=== PATIENT | male | born 1955 | race Caucasian/White ===

== ENCOUNTER 2017-06-05 09:10 | Day surgery (SDC) | payer BC ==
[2017-06-02 11:27] VITALS: BMI 28.8
[~2017-06-05 09:10] MED LIST: LACTATED RINGERS 1,000 ML IV SCH
[2017-06-05 10:14] VITALS: TEMP 98.3
[2017-06-05] MEDS ORDERED: LIDOCAINE 1% INJ 10MG/ML (20 ML MDV) ONE (10:41)
[2017-06-05] MEDS ORDERED: PROPOFOL 10 MG/ML 20 ML VIAL IV ONE (10:41)
--- NOTE | 2017-06-05 11:09 | P.PCN ---
Date of Procedure: 06/05/17 Procedure(s) Performed: Procedure: Total colonoscopy. Preoperative diagnosis: Screening for neoplasia. Postoperative diagnosis: Mild sigmoid diverticulosis, otherwise, exam reveals no evidence of diverticulitis, polyps or cancer. Preparation: HalfLytely prep. Sedation: Was provided by anesthesia. Brief clinical history: The patient is a 61-year-old male who is scheduled for this evaluation for screening for neoplasia, age being his risk factor as well as history of polyps. No family history of colon cancer. His last colonoscopy was in May 2012. At this time, he has no abdominal complaints, bleeding or anemia. Procedure: With the patient on his left lateral decubitus position and after informed consent and adequate sedation, the perianal area was inspected and it did not show any fissures or fistulas. There were no masses felt on digital rectal examination. The Olympus CFQ 160L video colonoscope was then inserted in the rectum in the usual fashion and advanced to the cecum. The mucosa appeared healthy. There were no obvious polyps or tumors seen. There was mild sigmoid diverticulosis noted with no evidence of acute diverticulitis or strictures. I retroflexed the endoscope in the rectum before the endoscope was withdrawn. The patient tolerated the procedure well. Plan: The patient was reassured. He will follow up with you as planned and I recommended repeat exam in 5 years.
[2017-06-05 11:26] VITALS: BP 113/70; PULSE 72; RESP 16
== END 2017-06-05 11:50 | disposition home or self-care (01) ==
LOC: ORWHC2ENDO 09:10
DX: Z12.11 Encounter for screening for malignant neoplasm of colon (principal); K57.30 Diverticulosis of large intestine without perforation or abscess without bleeding; Z86.010 Personal history of colon polyps; Z85.46 Personal history of malignant neoplasm of prostate; Z79.82 Long term (current) use of aspirin
CPT/HCPCS: J2001; J2704; G0105

== ENCOUNTER 2017-11-20 11:41 | Emergency (ER) | payer BC ==
[2017-11-20 13:10] LABS: Albumin 4.3 g/dL (3.5-5.0); Calcium 9.2 mg/dL (8.4-10.2); Potassium 4.3 mmol/L (3.5-5.1); Total Bilirubin 0.8 mg/dL (0.2-1.3); Total Protein 6.9 g/dL (6.3-8.2)
[2017-11-20 13:17] LABS: Basophils % (A) 0 %; Eosinophils % (A) 0 %; HCT 44.4 % (39.0-53.0); HGB 14.6 gm/dL (13.0-17.5); Lymphocytes # (A) 0.6 k/uL (1.0-4.8); Lymphocytes % (A) 7 %; MCH 30.7 pg (25.0-35.0); MCHC 32.9 g/dL (31.0-37.0); MCV 93.1 fL (80.0-100.0); Mean Platelet Volume 7.3; Monocytes # (A) 0.4 k/uL (0-1.0); Monocytes % (A) 4 %; Neutrophils % (A) 88 %; Platelet Count 153 k/uL (150-450); RBC 4.77 m/uL (4.30-5.90); RDW 13.3 % (11.5-15.5); WBC 9.1 k/uL (3.8-10.6)
[2017-11-20 13:23] LABS: Appearance,Urine Cloudy (Clear); Bilirubin,Urine Negative (Negative); Blood,Urine Large (Negative); Color,Urine Yellow; Glucose,Urine (UA) Negative (Negative); Ketones,Urine 1+ (Negative); Leukocyte Esterase,Urine Negative (Negative); Mucus,Urine Few /hpf; Nitrite,Urine Negative (Negative); Protein,Urine Trace (Negative); RBC,Urine >182 /hpf (0-5); Specific Gravity,Urine 1.015 (1.001-1.035); Urobilinogen,Urine <2.0 mg/dL (<2.0); WBC,Urine 4 /hpf (0-5)
--- NOTE | 2017-11-20 13:59 | ED ---
General Adult HPI - General Chief complaint: Abdominal Pain Stated complaint: Abd Pain Time Seen by Provider: 11/20/17 13:50 Source: patient, RN notes reviewed Mode of arrival: wheelchair Limitations: no limitations - History of Present Illness Initial comments: Patient is a 62-year-old male sent to the emergency room today with a chief complaint of hematuria and right-sided flank pain. Patient states that he did see some what he believes to be blood in his urine earlier today. Patient states he was at work when he began having increased sharp pain located on the right flank radiating around to the right side of the front of the abdomen. Patient states pain has subsided at this time is feeling much better. He does admit that he was nauseated earlier today became very sweaty when he had all his pain. States started approximately 3 hours ago. Patient denies any symptoms at this time. Patient denies any recent fever, chills, shortness of breath, chest pain, numbness or tingling, dysuria, constipation or diarrhea, headaches or visual changes, or any other complaints. - Related Data Previous Rx's Medication Instructions Recorded Ibuprofen [Motrin] 800 mg PO Q6HR #30 tab 11/20/17 Ondansetron Odt [Zofran ODT] 4 mg PO Q8HR PRN #20 tab 11/20/17 Allergies Allergy/AdvReac Type Severity Reaction Status Date / Time No Known Allergies Allergy Verified 11/20/17 14:00 Review of Systems ROS Statement: Those systems with pertinent positive or pertinent negative responses have been documented in the HPI. ROS Other: All systems not noted in ROS Statement are negative. Past Medical History Past Medical History: Cancer, Prostate Disorder Additional Past Medical History / Comment(s): prostate-no chemo/rad History of Any Multi-Drug Resistant Organisms: None Reported Past Surgical History: Orthopedic Surgery, Prostate Surgery Additional Past Surgical History / Comment(s): colonoscopy,shoulder repair, prostatectomy,repair tibia fx-no hardware. Past Anesthesia/Blood Transfusion Reactions: No Reported Reaction Past Psychological History: No Psychological Hx Reported Smoking Status: Never smoker Past Alcohol Use History: None Reported Past Drug Use History: None Reported - Past Family History Father Family Medical History: Cancer General Exam - General Exam Comments Initial Comments: General: The patient is awake and alert, in no distress, and does not appear acutely ill. Eye: Pupils are equal, round and reactive to light, extra-ocular movements are intact. No nystagmus. There is normal conjunctiva bilaterally. No signs of icterus. Ears, nose, mouth and throat: There are moist mucous membranes and no oral lesions. Neck: The neck is supple, there is no tenderness or JVD. Cardiovascular: There is a regular rate and rhythm. No murmur, rub or gallop is appreciated. Respiratory: Lungs are clear to auscultation, respirations are non-labored, breath sounds are equal. No wheezes, stridor, rales, or rhonchi. Gastrointestinal: Soft, non-distended, non-tender abdomen without masses or organomegaly noted. There is no rebound or guarding present. No CVA tenderness. Musculoskeletal: Normal ROM, no tenderness. Sensation intact. Neurological: A&O x 3. CN II-XII intact, There are no obvious motor or sensory deficits. Coordination appears grossly intact. Speech is normal. Skin: Skin is warm and dry and no rashes or lesions are noted. Psychiatric: Cooperative, appropriate mood & affect, normal judgment. Limitations: no limitations Course Vital Signs 11/20/17 11/20/17 12:33 15:12 Temperature 97.8 F Pulse Rate 50 L 54 L Respiratory 20 18 Rate Blood Pressure 154/88 156/75 O2 Sat by Pulse 99 100 Oximetry Medical Decision Making - Medical Decision Making Patient's CT of the abdomen and pelvis reviewed and shows a poorly characterized solid mass upper pole of the right kidney felt to reflect renal cell carcinoma until proven otherwise. Blood products are seen within the right renal collecting system. No evidence of a metastatic disease at this time as read by radiologist Dr. Peterson. Patient's blood work was reviewed. His urinalysis shows large blood. Patient currently comfortable at this time. Case was discussed with attending physician Dr. Hawkins. Patient will be discharged to follow-up with urologist over the next 2 days. Patient advised return if symptoms increase or worsen or for concerns. - Lab Data Result diagrams: 11/20/17 12:46 11/20/17 12:46 Lab Results 11/20/17 11/20/17 11/20/17 Range/Units 12:46 12:46 12:46 WBC 9.1 (3.8-10.6) k/uL RBC 4.77 (4.30-5.90) m/uL Hgb 14.6 (13.0-17.5) gm/dL Hct 44.4 (39.0-53.0) % MCV 93.1 (80.0-100.0) fL MCH 30.7 (25.0-35.0) pg MCHC 32.9 (31.0-37.0) g/dL RDW 13.3 (11.5-15.5) % Plt Count 153 (150-450) k/uL Neutrophils % 88 % Lymphocytes % 7 % Monocytes % 4 % Eosinophils % 0 % Basophils % 0 % Neutrophils # 8.0 H (1.3-7.7) k/uL Lymphocytes # 0.6 L (1.0-4.8) k/uL Monocytes # 0.4 (0-1.0) k/uL Eosinophils # 0.0 (0-0.7) k/uL Basophils # 0.0 (0-0.2) k/uL Sodium 139 (137-145) mmol/L Potassium 4.3 (3.5-5.1) mmol/L Chloride 106 (98-107) mmol/L Carbon Dioxide 23 (22-30) mmol/L Anion Gap 10 mmol/L BUN 22 H (9-20) mg/dL Creatinine 1.26 H (0.66-1.25) mg/dL Est GFR (CKD-EPI)AfAm 71 (>60 ml/min/1.73 sqM) Est GFR (CKD-EPI)NonAf 62 (>60 ml/min/1.73 sqM) Glucose 129 H (74-99) mg/dL Calcium 9.2 (8.4-10.2) mg/dL Total Bilirubin 0.8 (0.2-1.3) mg/dL AST 33 (17-59) U/L ALT 33 (21-72) U/L Alkaline Phosphatase 87 (38-126) U/L Total Protein 6.9 (6.3-8.2) g/dL Albumin 4.3 (3.5-5.0) g/dL Amylase 63 (30-110) U/L Lipase 113 (23-300) U/L Urine Color Yellow Urine Appearance Cloudy (Clear) Urine pH 5.0 (5.0-8.0) Ur Specific [place] 1.015 (1.001-1.035) Urine Protein Trace H (Negative) Urine Glucose (UA) Negative (Negative) Urine Ketones 1+ H (Negative) Urine Blood Large H (Negative) Urine Nitrite Negative (Negative) Urine Bilirubin Negative (Negative) Urine Urobilinogen <2.0 (<2.0) mg/dL Ur Leukocyte Esterase Negative (Negative) Urine RBC >182 H (0-5) /hpf Urine WBC 4 (0-5) /hpf Urine Mucus Few H (None) /hpf Disposition Clinical Impression: Right kidney mass, Flank pain Disposition: HOME SELF-CARE Condition: Good Instructions: Abdominal Pain (ED) Additional Instructions: Please follow-up with the family doctor or urologist over the next 2 days. Please return here to emergency room if any symptoms increase or worsen or for any other concerns. Prescriptions: Ibuprofen [Motrin] 800 mg PO Q6HR #30 tab Ondansetron Odt [Zofran ODT] 4 mg PO Q8HR PRN #20 tab PRN Reason: Nausea Is patient prescribed a controlled substance at d/c from ED?: No Referrals: Ric Queen MD [Primary Care Provider] - 1-2 days Time of Disposition: 15:43
--- NOTE | 2017-11-20 14:53 | CT ---
EXAMINATION TYPE: CT abdomen pelvis wo con DATE OF EXAM: 11/20/2017 COMPARISON: None HISTORY: Right flank pain and gross hematuria. CT DLP: 1121 mGycm Examination of the solid and hollow viscera is limited given the lack of contrast. FINDINGS: LUNG BASES: No evidence for nodule. No evidence for infiltrate. Linear basilar parenchymal scarring LIVER/GB: The gallbladder is unremarkable. No space-occupying hepatic lesion. PANCREAS: No pancreatic mass identified. No inflammatory process seen. SPLEEN: No evidence for splenomegaly. No intrasplenic lesions seen. ADRENALS: No adrenal nodules identified. No evidence for thickening. KIDNEYS: Mass which appears to be solid upper pole right kidney measuring 6.5 x 5.8 cm with internal calcifications felt to reflect renal cell carcinoma until proven otherwise. Hemorrhagic byproducts ar e seen within the right renal pelvis and lower pole calyceal system. Given the lack of contrast mass is poorly characterized at this time. Additional hypodense lesion midpole right kidney measures 1 cm. No definite nephrolithiasis. No evidence for left sided renal mass or hydronephrosis. Renal parenchy mal thinning may be related to prior insult. BOWEL: Lymph nodes: No evidence for adenopathy greater than 1 cm. Abdominal aorta: Atheromatous changes seen. No evidence for aneurysm. Genital organs: No significant abnormality. Other: No significant abnormality. IMPRESSION: 1. Poorly characterized solid mass upper pole right kidney felt to reflect renal cell carcinoma unti l proven otherwise. Blood byproducts are seen within the right renal collecting system. No evidence f or metastatic disease at this time on this noncontrast examination.
[2017-11-20] MEDS ORDERED: KETOROLAC 60 MG/2 ML VIAL IM STA (15:00)
[2017-11-20 15:13] VITALS: RESP 18
[2017-11-20 16:08] VITALS: BP 126/60; PULSE 62; TEMP 98.6
== END 2017-11-20 16:07 | disposition home or self-care (01) ==
LOC: EC 11:41
DX: N28.89 Other specified disorders of kidney and ureter (principal); R10.9 Unspecified abdominal pain; R11.0 Nausea; R31.9 Hematuria, unspecified; Z85.46 Personal history of malignant neoplasm of prostate; Z90.89 Acquired absence of other organs; Z98.890 Other specified postprocedural states
CPT/HCPCS: 36415; 80053; 82150; 83690; 85025; 81001; 74176; 99284; 96372; J1885

== ENCOUNTER → 2017-11-28 | Outpatient (CLI) | payer BC ==
--- NOTE | 2017-11-28 14:41 | CT ---
EXAMINATION TYPE: CT abdomen w con DATE OF EXAM: 11/28/2017 COMPARISON: Prior CT abdomen and pelvis from 8 days ago. HISTORY: Abnormal CT, right renal mass CT DLP: 911.3 mGycm, Automated Exposure Control for Dose Reduction was Utilized. CONTRAST: CT scan of the abdomen is performed with oral and with IV Contrast, patient injected with 100 mL of I sovue 300. FINDINGS: LUNG BASES: Some patchy bibasilar linear scarring and/or atelectasis anteriorly in the central aspect of both lung bases is redemonstrated. LIVER/GB: No significant abnormality is appreciated. PANCREAS: No significant abnormality is seen. SPLEEN: No significant abnormality is seen. ADRENALS: No significant abnormality is seen. KIDNEYS: There is redemonstration of focal cortical scarring laterally upper to mid pole level left k idney axial image 28. A 2 mm calculus on prior study is less well-seen on current study with contrast enhancement. There is symmetric cortical medullary uptake and excretion from both kidneys without ev idence of hydronephrosis bilaterally. Right kidney shows a few subcentimeter simple appearing cysts lower pole level axial image 44 as well as a 1.3 cm simple appearing cyst mid to lower pole level axial image 36 series 9. Corresponding to recent CT there is however all shaped partially exophytic heterogeneous enhancing mass or solid neopl asm from the upper pole right kidney measuring 6.0 cm transversely by 6.3 cm AP diameter axial image 26 x 6.7 cm craniocaudal diameter coronal image 62 strongly suspicious for renal cell carcinoma. Bryan ncy of the draining right renal vein is noted. BOWEL: Minimal oral contrast is evident. No suspicious small or large bowel dilatation is seen. A few scattered diverticula in the left colon are present. There is mild wall thickening in the distal tra nsverse colon axial image 21 on current study that showed no suspicious abnormality on prior CT favor ing focal spasm. LYMPH NODES: No greater than 1cm abdominal lymph nodes are appreciated. OSSEOUS STRUCTURES: Moderate to severe disc space narrowing lumbosacral junction is present. There is some multilevel spurring in the visualized thoracic spine. OTHER: No significant additional abnormality is seen. IMPRESSION: Confirmation of enhancing partially exophytic solid upper pole right renal mass felt to r eflect renal cell carcinoma.
== END | disposition home or self-care (01) ==
LOC: RADCTMAIN 12:32
PROVIDERS: ATTEND Urology
DX: N28.89 Other specified disorders of kidney and ureter (principal)
CPT/HCPCS: 74160; Q9967

== ENCOUNTER → 2018-04-16 | Outpatient (CLI) | payer BC ==
--- NOTE | 2018-04-17 14:21 | CT ---
EXAMINATION TYPE: CT ChestAbdPelvis wo con DATE OF EXAM: 04/16/2018 COMPARISON: 11/28/2017 and 11/20/2017 HISTORY: Follow up for renal CA CT DLP: 944.2 mGycm. Automated Exposure Control for Dose Reduction was Utilized. TECHNIQUE: CT scan of the thorax, abdomen and pelvis is performed without IV contrast. FINDINGS: LUNGS: There is a right basilar 5 mm pulmonary nodule seen on series 4 image 42. This is adjacent to an area of atelectasis and pseudonodule is possible. This is only partially imaged on the exam of 11/08 given [id number] in the prior CT abdomen and pelvis. Bandlike pleural parenchymal scarring is noted just inferior to this nodule. Minimal left basilar pleural parenchymal scarring is also seen . No suspicious left sided pulmonary nodule or mass. MEDIASTINUM: There are no greater than 1 cm hilar or mediastinal lymph nodes. No pericardial effusi on is seen. Minimal coronary calcifications are seen. Punctate calcification in the aorticopulmonary window is likely within a lymph node and benign. LIVER/GB: No significant abnormality is appreciated. No cholelithiasis. No intrahepatic biliary ducta l dilatation. PANCREAS: No significant abnormality is seen. SPLEEN: No significant abnormality is seen. ADRENALS: Right adrenal gland appears surgically absent. Left adrenal gland is unremarkable. KIDNEYS: Right kidney is surgically absent. There is prolapse of large bowel into the right nephrecto my bed. No right nephrectomy bed soft tissue nodule or adenopathy is seen. There is scarring of the left renal mid pole with cortical retraction. Punctate calcifications are se en at the capsular margin at this location. Correlate for prior injury. BOWEL: Descending duodenal diverticulum is incidentally seen. Oral contrast extends only to the ascen ding colon, limiting evaluation of the bowel. Scattered colonic diverticula are seen without pericolo melina fat stranding. No dilation of the large or small bowel. LYMPH NODES: No greater than 1cm abdominal or pelvic lymph nodes are appreciated. Shotty retroperiton eal less than 1 cm periaortic lymph nodes are seen. No suspicious adenopathy is identified. OSSEOUS STRUCTURES: There are multiple punctate sclerotic foci within the thoracic vertebral bodies, however these are contiguous with degenerative endplate changes. Anterior osteophytes are seen of th e thoracic spine. Degenerative disc disease is also seen at L5-S1. Sclerotic foci of the thoracic spi ne are of low suspicion for metastasis and favored to represent sequela of degenerative change. Indet erminate left iliac lesion is seen on image 101 with a central area of lucency measuring 1.1 cm. This is also low suspicion. Mild degenerative changes of the sacroiliac joints and moderate bilateral fem oral acetabular arthropathy are also noted. IMPRESSION: 1. Status post right nephrectomy with no residual soft tissue density seen in the right nephrectomy b ed nor retroperitoneal adenopathy. 2. Stable cortical scarring of the left renal midpole with punctate capsular or subcapsular calcifica tions. Correlate for prior injury or prior cryoablation. 3. Multiple punctate sclerotic foci of the thoracic vertebral bodies are favored to represent sequela of degenerative endplate change rather than osseous metastasis. These are of low suspicion. 3. 5 mm right basilar pulmonary nodule elongates and may represent a pseudonodule with surrounding at electasis and scarring. Short-term follow-up is recommended in 6 months to exclude true pulmonary nod ule 3 no additional pulmonary nodules or masses are seen. No intrathoracic adenopathy.
== END | disposition home or self-care (01) ==
LOC: RADCTMAIN 13:50
PROVIDERS: ATTEND Internal Medicine Hematology & Oncology
DX: Z08 Encounter for follow-up examination after completed treatment for malignant neoplasm (principal); R91.8 Other nonspecific abnormal finding of lung field; R93.7 Abnormal findings on diagnostic imaging of other parts of musculoskeletal system; Z90.5 Acquired absence of kidney; Z85.528 Personal history of other malignant neoplasm of kidney
CPT/HCPCS: 36415; 71250; 74176; 82565; 84520

== ENCOUNTER → 2018-05-21 | Outpatient (CLI) | payer BC ==
[2018-05-21 12:14] LABS: Appearance,Urine Clear (Clear); Bilirubin,Urine Negative (Negative); Blood,Urine Small (Negative); Color,Urine Yellow; Glucose,Urine (UA) Negative (Negative); Hyaline Casts,Urine 1 /lpf (0-2); Ketones,Urine Negative (Negative); Leukocyte Esterase,Urine Negative (Negative); Mucus,Urine Rare /hpf; Nitrite,Urine Negative (Negative); Protein,Urine Negative (Negative); RBC,Urine 1 /hpf (0-5); Specific Gravity,Urine 1.018 (1.001-1.035); Urobilinogen,Urine <2.0 mg/dL (<2.0); WBC,Urine 1 /hpf (0-5)
[2018-05-21 12:20] LABS: HCT 42.6 % (39.0-53.0); HGB 14.1 gm/dL (13.0-17.5); MCH 31.5 pg (25.0-35.0); MCHC 33.1 g/dL (31.0-37.0); MCV 95.1 fL (80.0-100.0); Mean Platelet Volume 7.8; Platelet Count 163 k/uL (150-450); RBC 4.48 m/uL (4.30-5.90); RDW 13.7 % (11.5-15.5); WBC 5.2 k/uL (3.8-10.6)
[2018-05-21 22:06] LABS: Albumin 4.2 g/dL (3.80-4.90); Albumin/Globulin Ratio 1.83 (1.60-3.17); Calcium 9.6 mg/dL (8.7-10.3); Globulin 2.3 g/dL (1.6-3.3); Phosphorus 3.5 mg/dL (2.4-5.1); Total Bilirubin 0.9 mg/dL (0.3-1.2); Total Protein 6.5 g/dL (6.2-8.2)
== END | disposition home or self-care (01) ==
LOC: LABWHC1 11:19
PROVIDERS: ATTEND Internal Medicine
DX: N39.0 Urinary tract infection, site not specified (principal); D64.9 Anemia, unspecified; E83.39 Other disorders of phosphorus metabolism
CPT/HCPCS: 36415; 80053; 81001; 84100; 85027

== ENCOUNTER → 2018-06-04 | Outpatient (CLI) | payer BC ==
--- NOTE | 2018-06-04 16:22 | US ---
EXAMINATION TYPE: US kidneys/renal and bladder DATE OF EXAM: 06/04/2018 COMPARISON: CT April 16, 2018. CLINICAL HISTORY: N18.9 kidney diease. Right kidney removed JAN 2018 due to renal CA, F/U EXAM MEASUREMENTS: Left Kidney: 11.8 x 6.2 x 5.4 cm Right Kidney: Surgically absent Left Kidney: Appeared wnl Bladder: wnl Bilateral Jets seen: Only left jet visualized Right kidney is surgically absent. Bladder is poorly distended and thus suboptimally evaluated. Dista l left ureter jet is visualized. Left kidney is normal in size. Cortical medullary differentiation is maintained. No hydronephrosis is seen. No concerning solid or cystic renal masses are present on flavio ges saved. Focal cortical scarring posterior lateral upper to mid pole level left kidney seen better on CT versus ultrasound. IMPRESSION: No hydronephrosis in the remnant left kidney.
== END | disposition home or self-care (01) ==
LOC: RADUSWWP 15:45
PROVIDERS: ATTEND Internal Medicine
DX: N18.9 Chronic kidney disease, unspecified (principal)
CPT/HCPCS: 76770

== ENCOUNTER → 2018-07-16 | Outpatient (CLI) | payer BC ==
--- NOTE | 2018-07-16 15:29 | US ---
EXAMINATION TYPE: US venous doppler duplex LE LT DATE OF EXAM: 07/16/2018 3:10 PM COMPARISON: NONE CLINICAL HISTORY: I82.409 Acute embolism and thrombosis. Pain left lower leg SIDE PERFORMED: left TECHNIQUE: The lower extremity deep venous system is examined utilizing real time linear array sonog elizabeth with graded compression, doppler sonography and color-flow sonography. VESSELS IMAGED: External Iliac Vein (EIV) Common Femoral Vein Deep Femoral Vein Greater Saphenous Vein * Femoral Vein Popliteal Vein Small Saphenous Vein * Proximal Calf Veins (* superficial vessels) There is normal flow, compressibility, vascular waveforms within the deep veins of the left lower ex tremity. At the site of the upper leg there is lack of compressibility with some wall thickening wit hin the serpiginous structure suggestive of superficial venous thrombosis. Left Leg: No evidence of DVT. Superficial thrombus noted left upper calf within area of pain IMPRESSION: No evident deep venous thrombosis at or above the left knee. Findings suggest superficial venous thrombosis within a varix.
== END | disposition home or self-care (01) ==
LOC: RADUSWWP 14:43
PROVIDERS: ATTEND Internal Medicine
DX: M79.662 Pain in left lower leg (principal)

== ENCOUNTER → 2018-10-15 | Outpatient (CLI) | payer BC ==
--- NOTE | 2018-10-15 19:41 | CT ---
EXAMINATION TYPE: CT ChestAbdPelvis wo con DATE OF EXAM: 10/15/2018 INDICATION: Renal cell cancer. COMPARISON: 04/16/2018 CT DLP: 1062.5 mGycm CONTRAST: None TECHNIQUE: Axial images at 5 mm thick sections. Reconstructed images in the coronal plane. Delayed images through the kidneys. FINDINGS: CT CHEST: Portion of the thyroid visualized is normal. No suspicious lung nodules or focal infiltrates are present. Small density in the posterior lateral r ight lung base appears smaller and less distinct than on the comparison study. No enlarged mediastinal or hilar adenopathy is evident. The ascending aorta diameter at the level of the main pulmonary artery is 3.5 cm. The main pulmonary artery diameter at the bifurcation is 3.0 cm. Minimal coronary artery calcification is present. CT ABDOMEN: Liver: Normal Spleen: Normal Pancreas: Normal Adrenal glands: The adrenal glands are normal. Gallbladder: Normal Kidneys: No masses are evident. No hydronephrosis is present. No cysts are present. Small calcific ations in the cortex of the mid left kidney. There is deformity of the left kidney which can be relat ed to prior scarring. The right kidney is absent. No suspicious masses within the right renal bed. Aorta: Vascular calcification is within the aorta. Inferior vena cava: Normal. CT PELVIS: There is an anterior abdominal wall hernia in the periumbilical region with an opening of 3.7 cm containing mesenteric fat. No loops of bowel are involved. Loops of bowel within the abdomen and pelvis are normal. There are loops of bowel which are incom pletely distended or lack oral contrast limiting their evaluation. Appendix: Normal as visualized. Urinary bladder: Normal. Genitourinary structures: Prostate appears normal. Osseous structures: No suspicious lytic or sclerotic lesions. IMPRESSIONS: 1. Stable appearance of the left kidney. 2. No suspicious metastatic changes.
== END | disposition home or self-care (01) ==
LOC: RADCTMAIN 12:08
PROVIDERS: ATTEND Internal Medicine Hematology & Oncology
DX: C64.1 Malignant neoplasm of right kidney, except renal pelvis (principal); Z03.89 Encounter for observation for other suspected diseases and conditions ruled out
CPT/HCPCS: 71250; 74176

== ENCOUNTER → 2019-04-24 | Outpatient (CLI) | payer BC ==
--- NOTE | 2019-04-24 14:02 | CT ---
EXAMINATION TYPE: CT ChestAbdPelvis wo con DATE OF EXAM: 04/24/2019 COMPARISON: CT October 15, 2018 and older CTs HISTORY: Follow up renal cancer CT DLP: 1276 mGycm. Automated Exposure Control for Dose Reduction was Utilized. TECHNIQUE: CT scan of the thorax, abdomen and pelvis is performed without oral or IV contrast. FINDINGS: LUNGS: Mild underlying emphysematous change. Focus of linear scarring right lower lobe posteriorly a xial image 46 redemonstrated. Additional mild linear scarring in both bases just above diaphragm rede monstrated. No suspicious new greater than 4 mm nodules or masses. No pleural effusion or pneumothora x seen bilaterally. No new focal infiltrate or consolidation. MEDIASTINUM: There are no greater than 1 cm hilar or mediastinal lymph nodes. No cardiomegaly or pe ricardial effusion is seen. Mild coronary artery calcification is present which is noted marker for underlying coronary artery disease. LIVER/GB: No significant abnormality is appreciated. PANCREAS: No significant abnormality is seen. SPLEEN: No significant abnormality is seen. ADRENALS: No significant abnormality is seen. KIDNEYS: Focal cortical defect or scar left kidney posteriorly midpole level axial image 77 redemonst rated. A few small simple appearing thin-walled cyst centrally left kidney remain present. Right kidn ey surgically absent. BOWEL: Normal-appearing appendix incidentally seen from cecum right midabdomen. GENITAL ORGANS: Prostate not well seen and may be small in size or surgically absent. LYMPH NODES: No greater than 1cm abdominal or pelvic lymph nodes are appreciated. OSSEOUS STRUCTURES: Moderate narrowing and spurring in both hip joints. Moderate to severe narrowing lumbosacral junction. OTHER: There is redemonstration of [place] pouch wall hernia containing fat and mesenteric vessels axial image 84 unchanged from most recent CT. Underlying scoliosis thoracic spine redemonstrated. A f ew tiny sclerotic foci throughout the pelvis favor benign bone islands for reference left humeral hea d lesion image 51. No new suspicious osseous lesions present. Some Schmorl nodes with sclerosis in th e thoracic spine are redemonstrated. IMPRESSION: No new mass or adenopathy to suggest neoplastic recurrence.
== END | disposition home or self-care (01) ==
LOC: RADCTMAIN 11:15
PROVIDERS: ATTEND Internal Medicine Hematology & Oncology
DX: C64.1 Malignant neoplasm of right kidney, except renal pelvis (principal)
CPT/HCPCS: 71250; 74176

== ENCOUNTER → 2019-10-23 | Outpatient (CLI) | payer BC ==
--- NOTE | 2019-10-24 05:14 | CT ---
EXAMINATION TYPE: CT ChestAbdPelvis wo con DATE OF EXAM: 10/23/2019 COMPARISON: 04/24/2019, 10/15/2018, 04/16/2018, 11/20/2017 HISTORY: 64-year-old male C64.1, Renal cell cancer. TECHNIQUE: Contiguous axial scanning of the chest, abdomen, and pelvis without IV contrast. Coronal a nd sagittal reconstructions performed. CT DLP: 1132 mGycm Automated exposure control for dose reduction was used. FINDINGS: CHEST: Heart normal size without pericardial effusion. Borderline ectasia aortic root at 3.6 cm. Conventional arch vessel branching anatomy. Trace bilateral gynecomastia. No thoracic lymphadenopathy by CT size criteria. Strands of atelectasis or scarring at the lower lungs. No suspicious pulmonary nodule or mass. No con solidation or pleural effusion. ABDOMEN: Lack of IV contrast limits assessment of the solid abdominal viscera, lymph nodes, and vascular struc tures. Noncontrast appearance of the liver, collapsed gallbladder, adrenal glands, spleen appear within norm al limits. Stable nodular configuration to the tip of the pancreatic tail back to at least 04/16/2018 suggesting a prominent lobule of normal pancreatic tissue. 2.4 cm diverticulum of the second portion of the duodenum projecting into the pancreatic head region. Patient is status post right nephrectomy. No abnormal nodularity seen within the nephrectomy bed. Stable cortical defect along the lateral upper midpole of the left kidney likely site of prior treatm ent or surgery. Some punctate calcifications along the margin of the defect remains unchanged. No new contour deforming lesion of the left kidney. Assessment of the parenchyma itself is limited due to l ack of IV contrast. Redemonstrated moderate-sized ventral midline supraumbilical hernia measuring 7.0 cm wide. No dilated small bowel, free fluid, or free air. No mesenteric or retroperitoneal lymphadenopathy. Normal appendix. Mild stool burden. Mild diverticular change along the proximal sigmoid. No pericolon ic inflammatory change. PELVIS: Bladder is nondistended. Focal 2.0 cm nodular thickening along the lower anterior left peritoneal lee ing, axial image 121 remains unchanged back to 04/16/2018 and even back to 11/20/2017 suggesting some ty pe of chronic benign etiology. Prostate gland is small. No abnormal fluid collection in the pelvis ar e otherwise any pelvic lymphadenopathy seen. BONES: Osteitis pubis. Degenerative changes at the hips. Degenerative bridging ankylosis at the right SI dara nt. Stable scattered small bone islands within the pelvis. Facet arthropathy lower lumbar spine. Dege nerative disc disease L5-S1. Moderate within the mid thoracic spine. No osseous destructive process s een. DISH within the lower thoracic spine. IMPRESSION: 1. STATUS POST RIGHT NEPHRECTOMY. ALSO, STABLE LARGE CORTICAL DEFECT ALONG THE LATERAL ASPECT OF THE LEFT KIDNEY, POSSIBLY POSTSURGICAL CHANGE. 2. STABLE 2 CM NODULE ALONG THE LOWER ANTERIOR LEFT PERITONEUM MOST SUGGESTIVE OF A BENIGN ETIOLOGY G IVEN STABILITY BACK TO 11/20/2017. 3. NO NEW OR SUSPICIOUS LESIONS IDENTIFIED TO SUGGEST METASTATIC DISEASE ON THIS NONCONTRAST STUDY. 4. MODERATE-SIZED FAT-CONTAINING VENTRAL ABDOMINAL WALL HERNIA REDEMONSTRATED. PROXIMAL SIGMOID DIVER TICULOSIS.
== END | disposition home or self-care (01) ==
LOC: RADCTMAIN 18:17
PROVIDERS: ATTEND Internal Medicine Hematology & Oncology
DX: K66.8 Other specified disorders of peritoneum (principal); N28.89 Other specified disorders of kidney and ureter; K43.9 Ventral hernia without obstruction or gangrene; K57.30 Diverticulosis of large intestine without perforation or abscess without bleeding; Z90.5 Acquired absence of kidney; C64.1 Malignant neoplasm of right kidney, except renal pelvis
CPT/HCPCS: 71250; 74176

== ENCOUNTER → 2020-04-28 | Outpatient (CLI) | payer BC ==
--- NOTE | 2020-04-28 14:56 | CT ---
EXAMINATION TYPE: CT ChestAbdPelvis wo con DATE OF EXAM: 04/28/2020 INDICATION: Follow up renal cancer COMPARISON: 10/23/2019 CT DLP: 1241 mGycm CONTRAST: Performed without Oral Contrast. No intravenous contrast. TECHNIQUE: Axial images at 5 mm thick sections. Reconstructed images in the coronal plane. Delayed images through the kidneys. FINDINGS: CT CHEST: Portion of the thyroid visualized is normal. There is a 0.5 cm rounded density in the right anterior upper lobe, series 4 image 21. This could be volume averaging with adjacent rib. New nodule however should be considered, this area is not clearly identified on previous exam. Some groundglass opacities in the posterior lateral right lung present previously. No enlarged mediastinal or hilar adenopathy is evident. The ascending aorta diameter at the level of the main pulmonary artery is 3. cm. The main pulmonary artery diameter at the bifurcation is 2.[address] ABDOMEN: There is an anterior abdominal wall hernia containing mesenteric fat in the superior umbi lical region with an opening measured at 5.4 cm. Liver: Normal Spleen: Normal Pancreas: Normal Adrenal glands: The adrenal glands are normal. Gallbladder: Normal Kidneys: Right kidney is absent. Right renal bed is normal Left kidney appears unremarkable. No sofia s are evident. No hydronephrosis is present. No cysts are present. No renal stones are identified. Aorta: Normal Inferior vena cava: Normal. CT PELVIS: Loops of bowel within the abdomen and pelvis are normal. The study is without oral contrast limit ing bowel evaluation. Appendix: Normal as visualized. Urinary bladder: Normal. Genitourinary structures: Prostate is not well visualized. Correlate with the history. Osseous structures: No suspicious lytic or sclerotic lesions. No expansile lesions are evident. IMPRESSIONS: 1. No suspicious changes to suggest recurrent or metastatic renal cancer. 2. Stable anterior abdominal wall mesenteric fat containing hernia
== END | disposition home or self-care (01) ==
LOC: RADCTMAIN 10:53
PROVIDERS: ATTEND Internal Medicine Hematology & Oncology
DX: K43.9 Ventral hernia without obstruction or gangrene (principal); C64.1 Malignant neoplasm of right kidney, except renal pelvis
CPT/HCPCS: 71250; 74176

== ENCOUNTER → 2020-10-27 | Outpatient (CLI) | payer BC ==
--- NOTE | 2020-10-28 08:58 | CT ---
EXAMINATION TYPE: CT ChestAbdPelvis wo con DATE OF EXAM: 10/27/2020 INDICATION: Follow up renal and prostate cancer COMPARISON: 04/28/2020 CT DLP: 1212.8 mGycm CONTRAST: Performed without Oral Contrast, patient injected with 0 mL of Isovue 300. TECHNIQUE: Axial images at 5 mm thick sections. Reconstructed images in the coronal plane. Delayed images through the kidneys. FINDINGS: CT CHEST: Portion of the thyroid visualized is normal. No suspicious lung nodules or focal infiltrates are present. No enlarged mediastinal or hilar adenopathy is evident. The ascending aorta diameter at the level of the main pulmonary artery is 3.8 cm. The main pulmonary artery diameter at the bifurcation is 3.0 cm. Minimal coronary artery calcification is noted. CT ABDOMEN: There is a stable anterior abdominal wall hernia containing mesenteric fat with an openin g of 5.1 cm. Liver: Normal Spleen: Normal Pancreas: Normal Adrenal glands: The adrenal glands are normal. Gallbladder: Normal Kidneys: No masses are evident. No hydronephrosis is present. No cysts are present. No renal stone s are evident. Right kidney is surgically absent. Aorta: Vascular calcification is within the aorta. Inferior vena cava: Normal. CT PELVIS: Loops of bowel within the abdomen and pelvis are normal. Study is without oral contrast limiting bowel evaluation. Appendix: Normal as visualized. Urinary bladder: Normal. Genitourinary structures: Prostate is normal Osseous structures: No suspicious lytic or sclerotic lesions. IMPRESSIONS: 1. No suspicious changes to suggest recurrent or metastatic renal cancer 2. Intra-abdominal hernia containing mesenteric fat
== END | disposition home or self-care (01) ==
LOC: RADCTMAIN 09:40
PROVIDERS: ATTEND Internal Medicine Hematology & Oncology
DX: C61 Malignant neoplasm of prostate (principal); C64.9 Malignant neoplasm of unspecified kidney, except renal pelvis; K46.9 Unspecified abdominal hernia without obstruction or gangrene
CPT/HCPCS: 71250; 74176

== ENCOUNTER → 2021-04-27 | Outpatient (CLI) | payer BC ==
--- NOTE | 2021-04-27 15:36 | CT ---
EXAMINATION TYPE: CT ChestAbdPelvis wo con DATE OF EXAM: 04/27/2021 INDICATION: renal ca. rt nephrectomy, prostate cancer COMPARISON: 10/27/2020 CT DLP: 1977 mGycm CONTRAST: Performed without Oral Contrast, no intravenous contrast. TECHNIQUE: Axial images at 5 mm thick sections. Reconstructed images in the coronal plane. Delayed images through the kidneys. FINDINGS: CT CHEST: Portion of the thyroid visualized is normal. No suspicious lung nodules or focal infiltrates are present. No enlarged mediastinal or hilar adenopathy is evident. The ascending aorta diameter at the level of the main pulmonary artery is 3.7 cm. The main pulmonary artery diameter at the bifurcation is 3.[address] ABDOMEN: There is an anterior abdominal wall hernia containing mesenteric fat with an opening of 5 .2 cm in the periumbilical region. Liver: Normal Spleen: Normal Pancreas: Normal Adrenal glands: The adrenal glands are normal. Gallbladder: Normal Kidneys: No renal stones are evident. Postsurgical change appears to be on the superior lateral left kidney. The right kidney is surgically absent. No masses are evident. No hydronephrosis is present. No cysts are present. Aorta: Vascular calcification is within the aorta. Inferior vena cava: Normal. CT PELVIS: Loops of bowel within the abdomen and pelvis are normal. This study is lateral contrast limiting bowel evaluation. There may be some rectal sigmoid bowel surgery present. Correlate with the history . Appendix: Normal as visualized. Urinary bladder: Decompressed with limited evaluation Genitourinary structures: Prostate is not identified. Osseous structures: No suspicious lytic or sclerotic lesions. Facet degenerative changes are present. No suspicious expansile lesions evident. IMPRESSIONS: 1. No suspicious changes to suggest recurrent or metastatic prostate or renal neoplasm. 2. Anterior abdominal wall hernia.
== END | disposition home or self-care (01) ==
LOC: RADCTMAIN 13:31
PROVIDERS: ATTEND Internal Medicine Hematology & Oncology
DX: C64.1 Malignant neoplasm of right kidney, except renal pelvis (principal); K43.9 Ventral hernia without obstruction or gangrene
CPT/HCPCS: 71250; 74176

== ENCOUNTER → 2021-11-10 | Outpatient (CLI) | payer BC ==
--- NOTE | 2021-11-10 22:21 | CT ---
EXAMINATION TYPE: CT ChestAbdPelvis wo con DATE OF EXAM: 11/10/2021 INDICATION: COMPARISON: 04/27/2021 CT DLP: 1218.7 mGycm CONTRAST: None TECHNIQUE: Axial images at 5 mm thick sections. Reconstructed images in the coronal plane. Delayed images through the kidneys. FINDINGS: CT CHEST: Portion of the thyroid visualized is normal. No suspicious lung nodules or focal infiltrates are present. No enlarged mediastinal or hilar adenopathy is evident. The ascending aorta diameter at the level of the main pulmonary artery is 3.8 cm. The main pulmonary artery diameter at the bifurcation is 3.0 cm. Coronary artery calcification is present. CT ABDOMEN: There is an anterior abdominal wall hernia measuring 4.1 cm containing mesenteric fat. No loops of bowel are involved. The superior to the umbilicus. Liver: Normal Spleen: Normal Pancreas: Normal Adrenal glands: The adrenal glands are normal. Gallbladder: Normal Kidneys: Right kidney is absent. Left kidney: No masses are evident. No hydronephrosis is present. No cysts are present. No renal s tones are identified. There may be some cortical thinning along the posterior lateral margin Aorta: Vascular calcification is within the aorta. Inferior vena cava: Normal. CT PELVIS: Loops of bowel within the abdomen and pelvis are normal. There are loops of bowel which are incom pletely distended or lack oral contrast limiting their evaluation. Appendix: Normal as visualized. Urinary bladder: Incompletely distended but otherwise unremarkable Genitourinary structures: Prostate is normal Osseous structures: No suspicious lytic or sclerotic lesions. Degenerative disc changes are within th e lower lumbar spine. IMPRESSIONS: 1. No suspicious changes for metastatic disease. 2. No recurrent masses within the right renal bed. 3. Anterior abdominal wall hernia unchanged.
== END | disposition home or self-care (01) ==
LOC: RADCTMAIN 07:43
PROVIDERS: ATTEND Internal Medicine Hematology & Oncology
DX: C64.1 Malignant neoplasm of right kidney, except renal pelvis (principal); K44.9 Diaphragmatic hernia without obstruction or gangrene
CPT/HCPCS: 71250; 74176

== ENCOUNTER 2022-07-15 13:13 | Day surgery (SDC) | payer BC ==
[2022-07-15 13:51] VITALS: TEMP 97.3
[2022-07-15] MEDS ORDERED: PROPOFOL 10 MG/ML 20 ML VIAL IV ONE (14:28)
--- NOTE | 2022-07-15 14:48 | P.PCN ---
Date of Procedure: 07/15/22 Procedure(s) Performed: BRIEF HISTORY: Patient is a 66-year-old pleasant white male scheduled for an elective colonoscopy as a part of screening for colon cancer/history of colon polyps. PROCEDURE PERFORMED: Colonoscopy. PREOPERATIVE DIAGNOSIS: Screening for colon cancer and history of colon polyp IV sedation per Anesthesia. PROCEDURE: After informed consent was obtained, the patient, was brought into the endoscopy unit. IV sedation was administered by Anesthesia under continuous monitoring. Digital rectal examination was normal. Initially the Olympus CF-160 flexible video colonoscope was then inserted in the rectum, gradually advanced into the cecum without any difficulty. Careful examination was performed as the scope was gradually being withdrawn. Ileocecal valve and the appendiceal orifice were visualized and appeared normal. Prep was excellent. Mucosa of the cecum, ascending colon, transverse colon, descending colon, sigmoid colon, and rectum appeared normal. Scattered sigmoid diverticula cyst. Retroflexion was performed in the rectum and no lesions were seen. The patient tolerated the procedure well. IMPRESSION: Normal-appearing colon from rectum to cecum no evidence of colorectal neoplasia . Scattered sigmoid diverticulosis. RECOMMENDATIONS: Findings of this examination were discussed with the patient as well as his family. He was advised to have a repeat screening colonoscopy in 10 years.
[2022-07-15 14:57] VITALS: RESP 16
[2022-07-15 15:09] VITALS: BP 136/79; PULSE 62
== END 2022-07-15 15:25 | disposition home or self-care (01) ==
LOC: ORWHC2ENDO 13:13
PROVIDERS: ATTEND Internal Medicine Gastroenterology
DX: Z12.11 Encounter for screening for malignant neoplasm of colon (principal); K57.30 Diverticulosis of large intestine without perforation or abscess without bleeding; I10 Essential (primary) hypertension; N40.0 Benign prostatic hyperplasia without lower urinary tract symptoms; Z86.010 Personal history of colon polyps; Z79.899 Other long term (current) drug therapy
CPT/HCPCS: 45378; J2704

== ENCOUNTER → 2022-09-12 | Outpatient (CLI) | payer OTHER ==
--- NOTE | 2022-09-12 13:51 | CT ---
EXAMINATION TYPE: CT ChestAbdPelvis wo con DATE OF EXAM: 09/12/2022 COMPARISON: Most recent CT November 10, 2021 HISTORY: prostate and kidney ca CT DLP: 1464.0 mGycm. Automated Exposure Control for Dose Reduction was Utilized. TECHNIQUE: CT scan of the thorax, abdomen and pelvis is performed without oral or IV contrast. FINDINGS: LUNGS: Mild linear scarring in both bases just above diaphragm is redemonstrated. No suspicious new g reater than 5 mm pulmonary nodules or masses. No pleural effusion or pneumothorax seen bilaterally. N o new focal infiltrate or consolidation. MEDIASTINUM: There are no new greater than 1 cm mediastinal lymph nodes. No cardiomegaly or pericar dial effusion is seen. Mild coronary artery calcification is redemonstrated. LIVER/GB: Contracted gallbladder on current study. PANCREAS: No significant abnormality is seen. SPLEEN: No significant abnormality is seen. ADRENALS: Tiny nodularity to right adrenal gland measuring 1.6 x 1.0 cm axial image 65 corresponding to coronal image 73 appears new from prior studies. KIDNEYS: Right kidney surgically absent with surgical sutures demonstrated. Focal cortical defect or scar left kidney posteriorly midpole level axial images 72 through 77 are redemonstrated. A few small simple appearing thin-walled cysts centrally left kidney remain present. BOWEL: Normal-appearing appendix incidentally seen from cecum right midabdomen. No suspicious small o r large bowel dilatation. Few sigmoid colonic diverticula. GENITAL ORGANS: Prostate not well seen and may be small in size or surgically absent. No significant change from prior. LYMPH NODES: No greater than 1cm abdominal or pelvic lymph nodes are appreciated. OSSEOUS STRUCTURES: Moderate narrowing and spurring in both hip joints there is redemonstrated. Moder ate to severe narrowing lumbosacral junction is redemonstrated. OTHER: There is redemonstration of [place] ventral wall hernia containing fat and mesenteric vessel s axial image 84 unchanged from most recent CT. Underlying scoliosis thoracic spine redemonstrated. A few tiny sclerotic foci throughout the pelvis favor benign bone islands are redemonstrated. No new s uspicious osseous lesions present. IMPRESSION: New nonspecific 1.6 x 1.0 cm right adrenal mass immediately adjacent to surgical sutures from right nephrectomy is concerning, recurrent neoplasm needs to be considered. At minimum short-ter m follow-up diagnostic CT in 3-6 months time is advised. Consider PET/CT follow-up to further evaluat e.
== END | disposition home or self-care (01) ==
LOC: RADCTMAIN 12:38
PROVIDERS: ATTEND Internal Medicine Hematology & Oncology
DX: C64.1 Malignant neoplasm of right kidney, except renal pelvis (principal); C61 Malignant neoplasm of prostate
CPT/HCPCS: 71250; 74176

== ENCOUNTER → 2022-12-23 | Outpatient (CLI) | payer OTHER ==
--- NOTE | 2022-12-23 09:18 | CT ---
EXAMINATION TYPE: CT abdomen wo con DATE OF EXAM: 12/23/2022 COMPARISON: 09/12/2022, 11/10/2021 HISTORY: 67-year-old male C6 4.1 Renal mass, hx renal ca TECHNIQUE: Contiguous axial scanning of the abdomen without IV contrast. Coronal and sagittal reconst ructions performed. CT DLP: 654 mGycm Automated exposure control for dose reduction was used. FINDINGS: Heart normal size without pericardial effusion. Strandy atelectasis or scarring in the lower lungs. Noncontrast appearance of the liver, gallbladder, left adrenal gland, spleen, and pancreas show no gr oss abnormality. Small 1.7 cm duodenal diverticulum projecting to the pancreatic head region. Enlarging nodularity of the right adrenal gland now 2.5 cm versus 1.2 cm, previously. Status post rig ht nephrectomy. Small parapelvic cysts left kidney. Cortical defects left kidney remain unchanged. Enlarging hypodense cortical lesion anterior upper pole left kidney currently 1.9 cm versus 1.7 cm on 09/12/2022 and 1.2 cm on 11/10/2021. Ongoing follow-up recommended. Moderate-sized omental fat-containing ventral abdominal wall hernia measuring 8.0 cm wide is relative ly similar. No dilated small bowel, free fluid, or free air. No mesenteric or retroperitoneal lymphadenopathy. Normal appendix. Moderate stool. No pericolonic inflammatory change. Pelvis not imaged. Bones: Hypertrophic facet arthropathy mid to lower lumbar spine. [facility] in the lower thoracic spine. No osseous destructive process seen. IMPRESSION: 1. STATUS POST RIGHT NEPHRECTOMY. THERE IS ENLARGING NODULARITY OF THE RIGHT ADRENAL GLAND CURRENTLY MEASURING 2.5 CM VERSUS 1.2 CM, PREVIOUSLY. NEW FROM 11/10/2021. UNABLE TO EXCLUDE LOCOREGIONAL RECURRE NCE AT THIS TIME. 2. A HYPODENSE CORTICAL LESION ANTERIOR UPPER POLE LEFT KIDNEY IS GRADUALLY ENLARGING WELL CURRENT LY 1.9 CM VERSUS 1.7 CM AND 1.2 CM ON THE 2 PRIOR EXAMS, RESPECTIVELY. ONGOING SURVEILLANCE FOLLOW-UP RECOMMENDED. ENLARGING CYST IS POSSIBLE. AN ENLARGING MASS IS NOT EXCLUDED AT THIS TIME.
== END | disposition home or self-care (01) ==
LOC: RADCTMAIN 07:37
PROVIDERS: ATTEND Internal Medicine Hematology & Oncology
DX: C64.1 Malignant neoplasm of right kidney, except renal pelvis (principal); E27.8 Other specified disorders of adrenal gland; C61 Malignant neoplasm of prostate; N28.89 Other specified disorders of kidney and ureter; Z90.5 Acquired absence of kidney; Z71.3 Dietary counseling and surveillance
CPT/HCPCS: 74150

== ENCOUNTER → 2023-05-25 | Outpatient (CLI) | payer OTHER ==
--- NOTE | 2023-05-28 12:42 | PE ---
EXAMINATION TYPE: PET CT fusion skull to thigh DATE OF EXAM: 05/25/2023 CLINICAL INDICATION:Male, 67 years old with history of C64.1 renal ca; TECHNIQUE: Following the intravenous administration of 13.14 mCi of F-18 FDG, whole body images are performed from the skull base to the midthigh. Images are reviewed on the computer in the coronal, axial, and sagittal planes. Reconstructed rotating images are created on independent workstation and reviewed on the computer. A non-contrast CT is performed in conjunction with the PET scan. Glucose level 98 mg/dL CT DLP: 969 mGycm, Automated exposure control for dose reduction was used. COMPARISON: CT 09/12/2022, 12/23/2022, 11/10/2021 PET/CT None, FINDINGS: Mediastinal SUV mean is 2.7. Hepatic parenchyma SUV mean is 3.75. SKULL BASE AND NECK: No suspicious radiotracer activity. CHEST, MEDIASTINUM, AND HILAR REGION: No suspicious radiotracer activity. ABDOMEN AND PELVIS: Suspected post surgical changes near the right adrenal gland with adrenalectomy. There is hazy soft t issue in this region which could be postsurgical. Mild uptake within the surgical bed max SUV 6.6 jonathan ng the superior medial margin. MUSCULOSKELETAL STRUCTURES: No suspicious radiotracer activity. OTHER CT: Ventral wall fat-containing hernia. The right kidney is surgically absent. Post treatment c hanges the left kidney. Scattered colonic diverticula. Appendix is normal. Fatty changes to the left inguinal canal. No portion duodenal diverticulum. Trachea atelectasis throughout the lungs. Heart is mildly enlarged for size. Fatty changes to left inguinal canal. IMPRESSION: Postsurgical changes to the right adrenal bed with persistent uptake near the superior medial margin. Uptake is indeterminate. Continued surveillance recommended to exclude recurrence. Please could repr esent post surgical change inflammation versus persistent malignancy.
== END | disposition home or self-care (01) ==
LOC: RADPETMAIN 10:14
PROVIDERS: ATTEND Surgery
DX: C64.1 Malignant neoplasm of right kidney, except renal pelvis (principal)
CPT/HCPCS: 78815; A9552

== ENCOUNTER → 2024-09-24 | Outpatient (CLI) | payer OTHER ==
--- NOTE | 2024-09-24 11:16 | US ---
EXAMINATION TYPE: US kidneys/renal and bladder DATE OF EXAM: 09/24/2024 COMPARISON: CT 12/23/[address] 05/25/2023 CLINICAL INDICATION: Male, 69 years old with history of C64.1 CT RT KIDNEY, EXCEPT RENAL PELVIS; Foll ow up, right kidney removed about 5 years ago due to malignancy, right adrenal gland removed about 1 year ago for malignancy. TECHNIQUE: Grayscale imaging of the bilateral kidneys and urinary bladder: FINDINGS: EXAM MEASUREMENTS: Right Kidney: Surgically absent Left Kidney: 13.0 x 7.0 x 7.0 cm Right Kidney: Surgically absent Left Kidney: Two anechoic, cyst-like areas seen. One at the superior pole measuring 2.2 x 2.2 x 2.0 cm One within the renal pelvis measuring 1.9 x 2.1 x 1.7 cm Bladder: wnl Bilateral Jets seen: Left jet visualized Exam limited by body habitus and overlying bowel gas. There is no evidence for hydronephrosis at this point in time. No nephrolithiasis is seen. No sofia s are identified. The urinary bladder is anechoic. IMPRESSION: Left renal cysts. [facility], , 09/24/2024 11:13 AM
== END | disposition home or self-care (01) ==
LOC: RADUSWWP 09:50
PROVIDERS: ATTEND Surgery
DX: C64.1 Malignant neoplasm of right kidney, except renal pelvis (principal); N28.1 Cyst of kidney, acquired
CPT/HCPCS: 76770